=== PATIENT | female | born 1960 | race Caucasian/White ===

== ENCOUNTER 2023-08-31 11:37 | Observation (INO) | payer MEDICAID ==
[2023-08-31] MEDS ORDERED: solu-MEDROL ONE (12:04)
[2023-08-31] MEDS ORDERED: Sterile H2O 10 ml IJ ONE (12:04)
[2023-08-31] MEDS ORDERED: DUONEB 0.5-3 MG/3 ml Neb IH ONE (12:06)
[2023-08-31] MEDS: solu-MEDROL 125 MG, Sterile H2O 10 ml 2 ML IV ONE (12:07)
[2023-08-31] MEDS: DUONEB 0.5-3 MG/3 ml Neb IH ONE (12:08)
[2023-08-31 12:12] LABS: Absolute Neutrophil Ct (ANC) 5.36 x10^3/uL (1.4-6.9); Basophil (Absolute #) 0.08 x10^3/uL (0-0.4); Eosinophil % 3.4 % (0.00-5.0); Eosinophil (Absolute #) 0.26 x10^3/uL (0-0.5); Hemoglobin 15.4 g/dL (12.0-16.0); IMMATURE GRAN # 0.03 x10^3u/L (0.00-0.03); IMMATURE GRAN % 0.4 % (0.00-0.4); Lymphocytes % 19.7 % (24.0-44.0); Mean Cell Volume 94.6 fL (78-100); Mean Corpuscular Hemoglobin 29.7 pg (26-32); Mean Corpuscular Hgb Concent. 31.4 g/dL (32-36); Mean Platelet Volume 10.9 fL (7.5-11.0); Monocyte (Absolute #) 0.39 x10^3/uL (0.0-1.3); Monocytes % 5.1 % (0.0-12.0); Neutrophil % 70.4 % (36.0-66.0); Platelet Count 271 x10^3/uL (150-450); Red Blood Count 5.18 x10^6/uL (4.1-5.4); Red Cell Distribution Width 13.4 % (11.5-14.0); White Blood Count 7.6 x10^3/uL (4.0-10.5)
[2023-08-31 12:19] LABS: VBG BASE EXCESS 1.9 (-2.0-2.0); VBG CARBOXYHEMOGLOBIN 3.8 % T HGB (0.0-6.9); VBG HCO3- 28.7 meq/L (22-28); VBG HEMOGLOBIN 15.8; VBG pH 7.35 (7.32-7.42)
[2023-08-31 12:20] LABS: ALBUMIN 3.7 g/dL (3.5-5.0); ANION GAP 9.9 MEQ/L (5-15); BILIRUBIN,TOTAL 0.4 mg/dL (0.2-1.3); Calcium 8.7 mg/dL (8.4-10.2); Creatinine 1 0.72 mg/dL (0.52-1.04); EST GLOMERULAR FILTRATION RATE 95.1 ML/MIN; MAGNESIUM 1.8 mg/dL (1.6-2.3); Total Protein 6.5 g/dL (6.3-8.2)
--- NOTE | 2023-08-31 12:29 | XRAY ---
Indication: Short of breath and cough. Comparison: None Portable chest hyperinflated and clear with a few incidental tiny calcified granulomas. No focal infiltrate, consolidation, or large effusion. Heart and mediastinal structures within normal limits. Bony thorax intact with mild degenerative changes and incompletely visualized cervical thoracic junction fusion hardware. Impression: Nonacute hyperinflated chest with chronic features.
[2023-08-31 12:41] LABS: NT PRO BNPII 73.2 pg/mL (<300); TROPONIN < 0.012 ng/mL (0.000-0.033)
--- NOTE | 2023-08-31 12:41 | ERPHSYRPT ---
- History of Present Illness Time Seen by Provider: 08/31/23 12:00 Source: patient Exam Limitations: no limitations Patient Subjective Stated Complaint: shortness of breath Triage Nursing Assessment: Pt brought self to the ER, hypertensive, denies pain, pulses normal, skin n/w/d, pt was having a hard time getting a breath and so she was placed on 2L NC, appears to be resting more comfortable now and oxygen sat is 97%, hx of COPD, does not see a doctor, cough with thick yellowish mucus, lung sounds diminished with wheezing, pt does not have a nebulizer or inhalers Physician History: 63-year-old female presents to emergency department for evaluation of progressive shortness of breath and a cough productive of yellow sputum.. Patient has a history of COPD and is a current smoker. Patient states he developed shortness of breath over the past 2 to 3 days. Upon arrival patient was hypoxic at 92% on room air. 2 L nasal cannula applied. Patient O2 sat on 2 L nasal cannula now 97%. Patient normally does not require supplemental oxygen. Patient states she does not have a home nebulizer or rescue inhaler. No chest pain. Patient otherwise feels well. She voices no other complaints or concerns at this time. Portions of this note were created with voice recognition technology. There may be grammatical, spelling, punctuation or sound alike errors Timing/Duration: today Activities at Onset: none Severity of Dyspnea-Max: moderate Severity of Dyspnea-Current: moderate Possible Cause: occasional episodes Modifying Factors: Improves With: activity Associated Symptoms: cough Allergies/Adverse Reactions: No Known Drug Allergies Allergy (Verified 08/31/23 11:56) Home Medications: No Reportable Medications [No Reported Medications] 08/31/23 [History] Hx Influenza Vaccination/Date Given: No Hx Pneumococcal Vaccination/Date Given: No Travel Risk - International Travel Have you traveled outside of the country in past 3 weeks: No - Emerging Infectious Disease Are you exhibiting symptoms associated with any current EIDs: No - Review of Systems Constitutional: No Symptoms, No Fever, No Chills Eyes: No Symptoms Ears, Nose, & Throat: No Symptoms Respiratory: Cough, Dyspnea, Wheezing Cardiac: No Symptoms, No Chest Pain, No Edema, No Syncope Abdominal/Gastrointestinal: No Symptoms, No Abdominal Pain, No Nausea, No Vomiting, No Diarrhea Genitourinary Symptoms: No Symptoms, No Dysuria Musculoskeletal: No Symptoms, No Back Pain, No Neck Pain Skin: No Symptoms, No Rash Neurological: No Symptoms, No Dizziness, No Focal Weakness, No Sensory Changes Psychological: No Symptoms Endocrine: No Symptoms Hematologic/Lymphatic: No Symptoms Immunological/Allergic: No Symptoms All Other Systems: Reviewed and Negative - Past Medical History Pertinent Past Medical History: Yes Respiratory History: COPD - Past Surgical History Past Surgical History: Yes Female Surgical History: Tubal Ligation Other Surgical History: ear surgery - Social History Smoking Status: Current every day smoker Exposure to second hand smoke: Yes Drug Use: marijuana - Nursing Vital Signs Nursing Vital Signs: Initial Vital Signs Temperature 97.5 F 08/31/23 11:45 Pulse Rate 85 08/31/23 11:45 Respiratory Rate 13 08/31/23 11:45 Blood Pressure 149/95 08/31/23 11:45 O2 Sat by Pulse Oximetry 93 L 08/31/23 11:45 Pain Scale Pain Intensity 0 - Physical Exam General Appearance: no apparent distress, alert Eye Exam: PERRL/EOMI Ears, Nose, Throat Exam: hearing grossly normal, normal ENT inspection, normal pharynx Neck Exam: normal inspection, supple Respiratory Exam: diminished breath sounds, rhonchi, wheezing Cardiovascular/Chest Exam: normal heart sounds, regular rate/rhythm Abdominal/Gastrointestinal Exam: soft, No tenderness, No distention, No mass Extremity Exam: non-tender, normal range of motion, normal inspection, no calf tenderness, no pedal edema Neurologic Exam: alert, oriented x 3, cooperative, manager resource II-XII nml as tested, sensation nml, No motor deficits Skin Exam: normal color, warm, No dry Lymphatic Exam: No adenopathy SpO2 Interpretation: normal SpO2: 98 O2 Delivery: Room Air - Course Nursing assessment & vital signs reviewed: Yes EKG Interpreted by Me: RATE (82), Sinus Rhythm, NORMAL AXIS, NORMAL INTERVALS - Radiology Exams Chest X-ray Interpretation: Teleradiologist Report (Hyperinflated nonacute chest with chronic features, lung granuloma) Ordered Tests: Active Orders 24 hr Category Date Time Status Preservative Filler Machine Operator STAT Care 08/31/23 11:59 Active EKG-ER Only STAT Care 08/31/23 11:58 Active IV Insertion STAT Care 08/31/23 11:58 Active Oxygen-ED Only Nasal Cannula 2 lpm Care 08/31/23 11:58 Active Pulse Oximetry (ED) STAT Care 08/31/23 11:58 Active CHEST 1 VIEW (PORTABLE) Stat Exams 08/31/23 11:59 Completed BLOOD CULTURE Stat Lab 08/31/23 12:20 Received CBC W DIFF Stat Lab 08/31/23 12:10 Completed CMP Stat Lab 08/31/23 12:10 Completed D-DIMER QUANTITATIVE Stat Lab 08/31/23 12:10 Completed Lactic Acid Stat Lab 08/31/23 11:58 Completed MAGNESIUM Stat Lab 08/31/23 12:10 Completed NT PRO BNPII Stat Lab 08/31/23 12:10 Completed TROPONIN Q4H Lab 08/31/23 12:10 Completed TROPONIN Q4H Lab 08/31/23 16:00 Ordered TROPONIN Q4H Lab 08/31/23 20:00 Ordered VENOUS BLOOD GAS Stat Lab 08/31/23 11:59 Completed Respiratory Therapy Assessment DAILY RT 08/31/23 12:10 Active Transfer Order Routine Transfer 08/31/23 Ordered Medication Summary Generic Name Dose Route Start Last Admin Trade Name Freq PRN Reason Stop Dose Admin Ceftriaxone Sodium 2 gm in 100 mls @ 200 mls/hr 08/31/23 12:41 08/31/23 12:46 Rocephin 2 Gm/100 Ml Nacl IV 08/31/23 13:10 200 ml/hr STAT ONE 200 mls/hr Administration Azithromycin 500 mg in 250 mls @ 250 mls/hr 08/31/23 12:41 08/31/23 12:50 Zithromax 500 Mg/ 250 Ml Nacl Premix IV 08/31/23 13:40 250 ml/hr STAT STA 250 mls/hr Administration Discontinued Medications Generic Name Dose Route Start Last Admin Trade Name Freq PRN Reason Stop Dose Admin Albuterol/Ipratropium 3 ml 08/31/23 11:58 08/31/23 12:08 Ipratropium/Albuterol Sulfate 3 Ml Ampul.Neb IH 08/31/23 11:59 3 ml STAT ONE Administration Albuterol/Ipratropium Confirm 08/31/23 12:06 Ipratropium/Albuterol Sulfate 3 Ml Ampul.Neb Administered 08/31/23 12:07 Dose 3 ml IH .STK-MED ONE Methylprednisolone Sodium 0 mg 08/31/23 11:58 08/31/23 12:07 Succinate 125 mg/ Sterile IV 08/31/23 11:59 125 mg Water 2 ml STAT ONE Administration Azithromycin Confirm 08/31/23 12:43 Zithromax 500 Mg/ 250 Ml Nacl Premix Administered 08/31/23 12:44 Dose 500 mg in 250 mls @ ud IV .STK-MED ONE Ceftriaxone Sodium Confirm 08/31/23 12:43 Rocephin 2 Gm/100 Ml Nacl Administered 08/31/23 12:44 Dose 2 gm in 100 mls @ ud IV .STK-MED ONE Methylprednisolone Sodium Succinate Confirm 08/31/23 12:04 Methylprednis Sod Succ 125 Mg/2 Ml Vial Administered 08/31/23 12:05 Dose 125 mg .ROUTE .STK-MED ONE Sterile Water Confirm 08/31/23 12:04 Water For Injection,Sterile 10 Ml Vial Administered 08/31/23 12:05 Dose 10 ml IJ .STK-MED ONE Lab/Rad Data: Laboratory Result Diagrams 08/31/23 12:10 08/31/23 12:10 Laboratory Results 08/31/23 08/31/23 08/31/23 Range/Units 12:10 12:10 12:10 WBC (4.0-10.5) x10^3/uL RBC (4.1-5.4) x10^6/uL Hgb (12.0-16.0) g/dL Hct (35-47) % MCV (78-100) fL MCH (26-32) pg MCHC (32-36) g/dL RDW (11.5-14.0) % Plt Count (150-450) x10^3/uL MPV (7.5-11.0) fL Gran % (36.0-66.0) % Immature Gran % (Auto) (0.00-0.4) % Nucleat RBC Rel Count (0.00-0.1) % Eos # (Auto) (0-0.5) x10^3/uL Immature Gran # (Auto) (0.00-0.03) x10^3u/L Absolute Lymphs (auto) (1.0-4.6) x10^3/uL Absolute Monos (auto) (0.0-1.3) x10^3/uL Absolute Nucleated RBC (0.00-0.01) x10^3u/L Lymphocytes % (24.0-44.0) % Monocytes % (0.0-12.0) % Eosinophils % (0.00-5.0) % Basophils % (0.0-0.4) % Absolute Granulocytes (1.4-6.9) x10^3/uL Basophils # (0-0.4) x10^3/uL D-Dimer 0.37 (0.0-0.50) mg/L pO2/FiO2 Ratio % VBG pH (7.32-7.42) VBG pCO2 at Pat Temp (42-55) mm/Hg VBG pO2 at Pat Temp (25-40) mm/Hg VBG HCO3 (22-28) meq/L VBG O2 Sat (Brook) (95-100) VBG Base Excess (-2.0-2.0) VBG Hemoglobin VBG Carboxyhemoglobin (0.0-6.9) % T HGB POC Potassium (3.5-5.1) Sodium 142 (135-145) mmol/L Potassium 4.0 (3.5-5.1) mmol/L Chloride 108 H (98-107) mmol/L Carbon Dioxide 28 (22-30) mmol/L Anion Gap 9.9 (5-15) MEQ/L BUN 16 (7-17) mg/dL Creatinine 0.72 (0.52-1.04) mg/dL Estimated GFR 95.1 ML/MIN Glucose 115 H (74-106) mg/dL Lactic Acid (0.4-2.0) Calcium 8.7 (8.4-10.2) mg/dL Magnesium 1.8 (1.6-2.3) mg/dL Total Bilirubin 0.40 (0.2-1.3) mg/dL AST 20 (14-36) U/L ALT 18 (0-35) U/L Alkaline Phosphatase 80 (38-126) U/L Troponin I < 0.012 (0.000-0.033) ng/mL NT-Pro-B Natriuret Pep 73.2 (<300) pg/mL Serum Total Protein 6.5 (6.3-8.2) g/dL Albumin 3.7 (3.5-5.0) g/dL 04/30/24 04/30/24 04/30/24 Range/Units 12:10 11:59 11:58 WBC 7.6 (4.0-10.5) x10^3/uL RBC 5.18 (4.1-5.4) x10^6/uL Hgb 15.4 (12.0-16.0) g/dL Hct 49.0 H (35-47) % MCV 94.6 (78-100) fL MCH 29.7 (26-32) pg MCHC 31.4 L (32-36) g/dL RDW 13.4 (11.5-14.0) % Plt Count 271 (150-450) x10^3/uL MPV 10.9 (7.5-11.0) fL Gran % 70.4 H (36.0-66.0) % Immature Gran % (Auto) 0.4 (0.00-0.4) % Nucleat RBC Rel Count 0.0 (0.00-0.1) % Eos # (Auto) 0.26 (0-0.5) x10^3/uL Immature Gran # (Auto) 0.03 (0.00-0.03) x10^3u/L Absolute Lymphs (auto) 1.50 (1.0-4.6) x10^3/uL Absolute Monos (auto) 0.39 (0.0-1.3) x10^3/uL Absolute Nucleated RBC 0.00 (0.00-0.01) x10^3u/L Lymphocytes % 19.7 L (24.0-44.0) % Monocytes % 5.1 (0.0-12.0) % Eosinophils % 3.4 (0.00-5.0) % Basophils % 1.0 (0.0-0.4) % Absolute Granulocytes 5.36 (1.4-6.9) x10^3/uL Basophils # 0.08 (0-0.4) x10^3/uL D-Dimer (0.0-0.50) mg/L pO2/FiO2 Ratio 21.0 % VBG pH 7.35 (7.32-7.42) VBG pCO2 at Pat Temp 52 (42-55) mm/Hg VBG pO2 at Pat Temp 112 H (25-40) mm/Hg VBG HCO3 28.7 H (22-28) meq/L VBG O2 Sat (Brook) 98.0 (95-100) VBG Base Excess 1.9 (-2.0-2.0) VBG Hemoglobin 15.8 VBG Carboxyhemoglobin 3.8 (0.0-6.9) % T HGB POC Potassium 4.0 (3.5-5.1) Sodium (135-145) mmol/L Potassium (3.5-5.1) mmol/L Chloride (98-107) mmol/L Carbon Dioxide (22-30) mmol/L Anion Gap (5-15) MEQ/L BUN (7-17) mg/dL Creatinine (0.52-1.04) mg/dL Estimated GFR ML/MIN Glucose (74-106) mg/dL Lactic Acid 1.5 (0.4-2.0) Calcium (8.4-10.2) mg/dL Magnesium (1.6-2.3) mg/dL Total Bilirubin (0.2-1.3) mg/dL AST (14-36) U/L ALT (0-35) U/L Alkaline Phosphatase (38-126) U/L Troponin I (0.000-0.033) ng/mL NT-Pro-B Natriuret Pep (<300) pg/mL Serum Total Protein (6.3-8.2) g/dL Albumin (3.5-5.0) g/dL - Progress Progress: improved Air Movement: good Progress Note: 63-year-old female presents to our ED for evaluation of shortness of breath. Upon arrival patient was hypoxic 92% on room air. Patient normally does not require supplemental oxygen. 2 L nasal cannula placed. O2 sat 97%. Physical exam reveals diminished coarse breath sounds with scattered wheezing. Patient received DuoNeb and Solu-Medrol. Symptoms improved. Wheezing resolved. Patient still requires supplemental oxygen. Patient is a smoker. Smoking cessa tion discussed. Patient will require hospitalization for further evaluation and treatment. Case discussed with Dr.Colan Higgins who accepts admission at 1:05 PM. Plan of care discussed with patient. She agrees to admission at [facility] for further evaluation and treatment. No significant lab derangements observed. D-dimer negative. Initial troponin negative as well. Portions of this note were created with voice recognition technology. There may be grammatical, spelling, punctuation or sound alike errors Complexity problem addressed is moderate acute complicated No critical care time Complexity of data reviewed and analyzed is extensive. Test ordered test reviewed results analyzed and correlated clinically with history and physical exam. Risk of complication and or risk of morbidity/mortality of patient management is high. Patient requires hospitalization for further evaluation and treatment. Vital stable. Time spent admit patient approximately 20 minutes. Plan of care established for shared decision making. No social determinants of health present impede follow-up Portions of this note were created with voice recognition technology. There may be grammatical, spelling, punctuation or sound alike errors 08/31/23 13:08 Blood Culture(s) Obtained: Yes Antibiotics given: Yes Counseled pt/family regarding: lab results, diagnosis, rad results - Departure Departure Disposition: Observation Clinical Impression: COPD exacerbation, Hypoxia, Lung granuloma Condition: Stable Critical Care Time: No Referrals: [facility] [LOCATION] - Follow up/PCP as directed Instructions: Chronic Obstructive Pulmonary Disease
[2023-08-31] MEDS ORDERED: ROCEPHIN 2 GM/100 ML NACL 2 GM/100 ML IVPB IV ONE (12:43)
[2023-08-31] MEDS ORDERED: Zithromax 500 MG/ 250 ML NaCl Premix 500 MG/250 ML IVPB IV ONE (12:43)
[2023-08-31] MEDS: ROCEPHIN 2 GM/100 ML NACL 2 GM/100 ML IVPB IV ONE (12:46)
[2023-08-31] MEDS: Zithromax 500 MG/ 250 ML NaCl Premix 500 MG/250 ML IVPB IV STA (12:50)
[2023-08-31 13:02] LABS: INFLUENZA A NEGATIVE (NEGATIVE); INFLUENZA B NEGATIVE (NEGATIVE); RESPIRATORY SYNCTIAL VIRUS NEGATIVE (NEGATIVE); SARS-CoV-2 Xpert Express NEGATIVE (NEGATIVE)
[2023-08-31] MEDS: DUONEB 0.5-3 MG/3 ml Neb IH SCH (13:46)
--- NOTE | 2023-08-31 14:32 | PCM.HP ---
History of Present Illness - Chief Complaint Chief Complaint: COPD exacerbation Date: 08/31/23 History of Present Illness: is a 63 year old female with a pmhx of COPD,current everyday smoker (1 pack every 2-3 days for the past 40 years) and h/o spontaneous pneumothorax who presented to [facility] ED 08/31/23 experiencing a week history of progressive shortness of breath and productive cough with yellow sputum. Patient states she has not been able to perform her ADL or ambulate without becoming severely short of breath. 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 Denies fever,cp, abdominal pain, WHITE, dizziness, N/V/D. No recent sick contacts. In ED vitals stable. CXR non-acute hyperinflated chest with chronic features. EKG NS. Labs unremarkable. Respiratory panel negative for flu A/B, Covid, and RSV. Patient given solumedrol, ceftriaxone, azithromycin, and duonebs in ED. - Review of Systems Constitutional: No Symptoms Eyes: No Symptoms Ears, Nose, & Throat: No Symptoms Respiratory: Cough, Short Of Breath Cardiac: No Symptoms Abdominal/Gastrointestinal: No Symptoms Genitourinary Symptoms: No Symptoms Musculoskeletal: No Symptoms Skin: No Symptoms Neurological: No Symptoms Psychological: No Symptoms Endocrine: No Symptoms Hematologic/Lymphatic: No Symptoms Immunological/Allergic: No Symptoms Medications & Allergies Home Medications: Home Medication List No Reportable Medications [No Reported Medications] 08/31/23 [History Confirmed 08/31/23] Allergies/Adverse Reactions: Allergies Allergy/AdvReac Type Severity Reaction Status Date / Time No Known Drug Allergies Allergy Verified 08/31/23 14:04 - Past Medical History Past Medical History: Yes Respiratory History: COPD - Past Surgical History Past Surgical History: Yes Female Surgical History: Tubal Ligation Other Surgical History: ear surgery - Social History Smoking Status: Current every day smoker Exposure to second hand smoke: Yes Alcohol: None Drug Use: marijuana - Social Determinants of Health Will the patient participate in the screening: Yes Do you worry about a steady place to live?: No Do you have any problems with any of the following?: No known problems In the past 12 months,have you had to go without utilities?: No Have you or anyone in your house had to go without enough: No Transportation Issues: No Has anyone in your support network made you feel unsafe?: No - Physical Exam Vital Signs: Vital Signs - 24 hr Temp Pulse Resp BP Pulse Ox 08/31/23 13:47 81 20 95 08/31/23 13:11 98 08/31/23 13:00 82 18 149/96 95 08/31/23 12:10 84 28 H 98 08/31/23 12:00 92 L 08/31/23 11:45 97.5 F 85 21 149/95 95 General Appearance: no apparent distress Neurologic Exam: alert, oriented x 3, cooperative Eye Exam: PERRL/EOMI Ears, Nose, Throat Exam: normal ENT inspection Neck Exam: normal inspection Respiratory Exam: diminished breath sounds, crackles/rales, wheezing Cardiovascular Exam: regular rate/rhythm, normal heart sounds Gastrointestinal/Abdomen Exam: soft, normal bowel sounds Pelvic Exam: not done Rectal Exam: deferred Back Exam: normal inspection Results - Labs Lab/Micro Results: Lab Results-Last 24 Hours 08/31/23 08/31/23 08/31/23 Range/Units 11:58 11:59 12:10 WBC 7.6 (4.0-10.5) x10^3/uL RBC 5.18 (4.1-5.4) x10^6/uL Hgb 15.4 (12.0-16.0) g/dL Hct 49.0 H (35-47) % MCV 94.6 (78-100) fL MCH 29.7 (26-32) pg MCHC 31.4 L (32-36) g/dL RDW 13.4 (11.5-14.0) % Plt Count 271 (150-450) x10^3/uL MPV 10.9 (7.5-11.0) fL Gran % 70.4 H (36.0-66.0) % Immature Gran % (Auto) 0.4 (0.00-0.4) % Nucleat RBC Rel Count 0.0 (0.00-0.1) % Eos # (Auto) 0.26 (0-0.5) x10^3/uL Immature Gran # (Auto) 0.03 (0.00-0.03) x10^3u/L Absolute Lymphs (auto) 1.50 (1.0-4.6) x10^3/uL Absolute Monos (auto) 0.39 (0.0-1.3) x10^3/uL Absolute Nucleated RBC 0.00 (0.00-0.01) x10^3u/L Lymphocytes % 19.7 L (24.0-44.0) % Monocytes % 5.1 (0.0-12.0) % Eosinophils % 3.4 (0.00-5.0) % Basophils % 1.0 (0.0-0.4) % Absolute Granulocytes 5.36 (1.4-6.9) x10^3/uL Basophils # 0.08 (0-0.4) x10^3/uL D-Dimer (0.0-0.50) mg/L pO2/FiO2 Ratio 21.0 % VBG pH 7.35 (7.32-7.42) VBG pCO2 at Pat Temp 52 (42-55) mm/Hg VBG pO2 at Pat Temp 112 H (25-40) mm/Hg VBG HCO3 28.7 H (22-28) meq/L VBG O2 Sat (Brook) 98.0 (95-100) VBG Base Excess 1.9 (-2.0-2.0) VBG Hemoglobin 15.8 VBG Carboxyhemoglobin 3.8 (0.0-6.9) % T HGB POC Potassium 4.0 (3.5-5.1) Sodium (135-145) mmol/L Potassium (3.5-5.1) mmol/L Chloride (98-107) mmol/L Carbon Dioxide (22-30) mmol/L Anion Gap (5-15) MEQ/L BUN (7-17) mg/dL Creatinine (0.52-1.04) mg/dL Estimated GFR ML/MIN Glucose (74-106) mg/dL Lactic Acid 1.5 (0.4-2.0) Calcium (8.4-10.2) mg/dL Magnesium (1.6-2.3) mg/dL Total Bilirubin (0.2-1.3) mg/dL AST (14-36) U/L ALT (0-35) U/L Alkaline Phosphatase (38-126) U/L Troponin I (0.000-0.033) ng/mL NT-Pro-B Natriuret Pep (<300) pg/mL Serum Total Protein (6.3-8.2) g/dL Albumin (3.5-5.0) g/dL Influenza Type A Ag (NEGATIVE) Influenza Type B Ag (NEGATIVE) RSV (PCR) (NEGATIVE) SARS-CoV-2 (PCR) (NEGATIVE) 08/31/23 08/31/23 08/31/23 Range/Units 12:10 12:10 12:10 WBC (4.0-10.5) x10^3/uL RBC (4.1-5.4) x10^6/uL Hgb (12.0-16.0) g/dL Hct (35-47) % MCV (78-100) fL MCH (26-32) pg MCHC (32-36) g/dL RDW (11.5-14.0) % Plt Count (150-450) x10^3/uL MPV (7.5-11.0) fL Gran % (36.0-66.0) % Immature Gran % (Auto) (0.00-0.4) % Nucleat RBC Rel Count (0.00-0.1) % Eos # (Auto) (0-0.5) x10^3/uL Immature Gran # (Auto) (0.00-0.03) x10^3u/L Absolute Lymphs (auto) (1.0-4.6) x10^3/uL Absolute Monos (auto) (0.0-1.3) x10^3/uL Absolute Nucleated RBC (0.00-0.01) x10^3u/L Lymphocytes % (24.0-44.0) % Monocytes % (0.0-12.0) % Eosinophils % (0.00-5.0) % Basophils % (0.0-0.4) % Absolute Granulocytes (1.4-6.9) x10^3/uL Basophils # (0-0.4) x10^3/uL D-Dimer 0.37 (0.0-0.50) mg/L pO2/FiO2 Ratio % VBG pH (7.32-7.42) VBG pCO2 at Pat Temp (42-55) mm/Hg VBG pO2 at Pat Temp (25-40) mm/Hg VBG HCO3 (22-28) meq/L VBG O2 Sat (Brook) (95-100) VBG Base Excess (-2.0-2.0) VBG Hemoglobin VBG Carboxyhemoglobin (0.0-6.9) % T HGB POC Potassium (3.5-5.1) Sodium 142 (135-145) mmol/L Potassium 4.0 (3.5-5.1) mmol/L Chloride 108 H (98-107) mmol/L Carbon Dioxide 28 (22-30) mmol/L Anion Gap 9.9 (5-15) MEQ/L BUN 16 (7-17) mg/dL Creatinine 0.72 (0.52-1.04) mg/dL Estimated GFR 95.1 ML/MIN Glucose 115 H (74-106) mg/dL Lactic Acid (0.4-2.0) Calcium 8.7 (8.4-10.2) mg/dL Magnesium 1.8 (1.6-2.3) mg/dL Total Bilirubin 0.40 (0.2-1.3) mg/dL AST 20 (14-36) U/L ALT 18 (0-35) U/L Alkaline Phosphatase 80 (38-126) U/L Troponin I < 0.012 (0.000-0.033) ng/mL NT-Pro-B Natriuret Pep 73.2 (<300) pg/mL Serum Total Protein 6.5 (6.3-8.2) g/dL Albumin 3.7 (3.5-5.0) g/dL Influenza Type A Ag (NEGATIVE) Influenza Type B Ag (NEGATIVE) RSV (PCR) (NEGATIVE) SARS-CoV-2 (PCR) (NEGATIVE) 08/31/23 Range/Units 12:20 WBC (4.0-10.5) x10^3/uL RBC (4.1-5.4) x10^6/uL Hgb (12.0-16.0) g/dL Hct (35-47) % MCV (78-100) fL MCH (26-32) pg MCHC (32-36) g/dL RDW (11.5-14.0) % Plt Count (150-450) x10^3/uL MPV (7.5-11.0) fL Gran % (36.0-66.0) % Immature Gran % (Auto) (0.00-0.4) % Nucleat RBC Rel Count (0.00-0.1) % Eos # (Auto) (0-0.5) x10^3/uL Immature Gran # (Auto) (0.00-0.03) x10^3u/L Absolute Lymphs (auto) (1.0-4.6) x10^3/uL Absolute Monos (auto) (0.0-1.3) x10^3/uL Absolute Nucleated RBC (0.00-0.01) x10^3u/L Lymphocytes % (24.0-44.0) % Monocytes % (0.0-12.0) % Eosinophils % (0.00-5.0) % Basophils % (0.0-0.4) % Absolute Granulocytes (1.4-6.9) x10^3/uL Basophils # (0-0.4) x10^3/uL D-Dimer (0.0-0.50) mg/L pO2/FiO2 Ratio % VBG pH (7.32-7.42) VBG pCO2 at Pat Temp (42-55) mm/Hg VBG pO2 at Pat Temp (25-40) mm/Hg VBG HCO3 (22-28) meq/L VBG O2 Sat (Brook) (95-100) VBG Base Excess (-2.0-2.0) VBG Hemoglobin VBG Carboxyhemoglobin (0.0-6.9) % T HGB POC Potassium (3.5-5.1) Sodium (135-145) mmol/L Potassium (3.5-5.1) mmol/L Chloride (98-107) mmol/L Carbon Dioxide (22-30) mmol/L Anion Gap (5-15) MEQ/L BUN (7-17) mg/dL Creatinine (0.52-1.04) mg/dL Estimated GFR ML/MIN Glucose (74-106) mg/dL Lactic Acid (0.4-2.0) Calcium (8.4-10.2) mg/dL Magnesium (1.6-2.3) mg/dL Total Bilirubin (0.2-1.3) mg/dL AST (14-36) U/L ALT (0-35) U/L Alkaline Phosphatase (38-126) U/L Troponin I (0.000-0.033) ng/mL NT-Pro-B Natriuret Pep (<300) pg/mL Serum Total Protein (6.3-8.2) g/dL Albumin (3.5-5.0) g/dL Influenza Type A Ag NEGATIVE (NEGATIVE) Influenza Type B Ag NEGATIVE (NEGATIVE) RSV (PCR) NEGATIVE (NEGATIVE) SARS-CoV-2 (PCR) NEGATIVE (NEGATIVE) - Radiology Impressions Radiology Exams & Impressions: Radiology Procedures Category Date Time Status CHEST 1 VIEW (PORTABLE) Stat Exams 08/31/23 11:59 Completed - Other Procedures and Tests Respiratory Therapy 08/31/23 12:10 Respiratory Therapy Assessment DAILY 08/31/23 13:49 Oxygen Nasal Cannula 2 lpm Assessment/Plan (1) COPD exacerbation Current Visit: Yes Status: Acute Assessment & Plan: -CXR nonacute hyperinflated chest with chronic features -Supplemental oxygen with goal spo2 > 92%, baseline RA -walk test for home qualification -RT eval -Duonebs/albuterol/advair -resp lang negative -Soulmedrol 40mg Q8H -Continue Azithromycin Code(s): J44.1 - CHRONIC OBSTRUCTIVE PULMONARY DISEASE W (ACUTE) EXACERBATION (2) Acute respiratory failure with hypoxia Current Visit: Yes Status: Acute Assessment & Plan: -Secondary to COPD exacerbation -CXR non-acute hyperinflated chest with chronic features -Supplemental oxygen with goal spo2 >92% -ABG/Bipap PRN Code(s): J96.01 - ACUTE RESPIRATORY FAILURE WITH HYPOXIA (3) Hypertension Current Visit: Yes Status: Acute Assessment & Plan: -no home meds, will continue to monitor Code(s): I10 - ESSENTIAL (PRIMARY) HYPERTENSION (4) Smoker Current Visit: Yes Status: Acute Assessment & Plan: -Advised cessation, has started the process but declines nicotine patch VTE: lovenox PPI: protonix Dispo: 1-2 days Code(s): F17.200 - NICOTINE DEPENDENCE, UNSPECIFIED, UNCOMPLICATED Telemedicine Encounter - Telemedicine Encounter Telemedicine Encounter: The entirety of this encounter was performed via Telemedicine"
[2023-08-31] MEDS ORDERED: Nicoderm CQ 21 MG TOP PRN (15:00)
[2023-08-31] MEDS: Advair Hfa 230/21 Mcg COMMON CANISTER IH SCH (19:20)
[2023-08-31] MEDS: solu-MEDROL 40 MG, Sterile H2O 10 ml 1 ML IV SCH (21:17)
[2023-09-01 05:07] LABS: Absolute Neutrophil Ct (ANC) 12.36 x10^3/uL (1.4-6.9); BASOPHIL % 0.1 % (0.0-0.4); Basophil (Absolute #) 0.02 x10^3/uL (0-0.4); Eosinophil (Absolute #) 0 x10^3/uL (0-0.5); Hematocrit 47.3 % (35-47); Hemoglobin 14.6 g/dL (12.0-16.0); IMMATURE GRAN # 0.08 x10^3u/L (0.00-0.03); IMMATURE GRAN % 0.6 % (0.00-0.4); Lymphocyte (Absolute #) 0.89 x10^3/uL (1.0-4.6); Lymphocytes % 6.6 % (24.0-44.0); Mean Cell Volume 94.6 fL (78-100); Mean Corpuscular Hemoglobin 29.2 pg (26-32); Mean Corpuscular Hgb Concent. 30.9 g/dL (32-36); Mean Platelet Volume 10.7 fL (7.5-11.0); Monocytes % 1.5 % (0.0-12.0); Neutrophil % 91.2 % (36.0-66.0); Platelet Count 273 x10^3/uL (150-450); Red Cell Distribution Width 13.5 % (11.5-14.0); White Blood Count 13.6 x10^3/uL (4.0-10.5)
[2023-09-01 05:22] LABS: ALBUMIN 3.6 g/dL (3.5-5.0); ANION GAP 10.4 MEQ/L (5-15); BILIRUBIN,TOTAL 0.3 mg/dL (0.2-1.3); Calcium 9.2 mg/dL (8.4-10.2); Creatinine 1 0.57 mg/dL (0.52-1.04); EST GLOMERULAR FILTRATION RATE 103.3 ML/MIN; Potassium 4.5 mmol/L (3.5-5.1); Total Protein 6.6 g/dL (6.3-8.2)
--- NOTE | 2023-09-01 05:24 | PCM.NOTE ---
Date and Time: 09/01/23521 Subjective Assessment: is a 63 year old female with a pmhx of COPD,current everyday smoker (1 pack every 2-3 days for the past 40 years) and h/o spontaneous pneumothorax who presented to [facility] ED 08/31/23 experiencing a week history of progressive shortness of breath and productive cough with yellow sputum admitted with COPD exacerbation. CXR with no infilatrates. Current treatment with steroids, antibiotics, and bronchodilators. Objective Data Vital Signs: Vital Signs - 24 hr Temp Pulse Resp BP Pulse Ox 09/01/23 04:00 98.0 F 86 17 131/74 95 09/01/23 00:00 99.0 F 98 H 18 134/95 93 L 08/31/23 20:00 97.9 F 90 15 131/74 99 08/31/23 19:20 92 H 20 91 L 08/31/23 16:00 98.4 F 89 19 129/70 99 08/31/23 14:22 98.0 F 85 22 160/95 92 L 08/31/23 14:00 92 H 22 160/65 92 L 08/31/23 13:47 81 20 95 08/31/23 13:11 98 08/31/23 13:00 82 18 149/96 95 08/31/23 12:10 84 28 H 98 08/31/23 12:00 92 L 08/31/23 11:45 97.5 F 85 21 149/95 95 Pain Assessment - Last Documented Pain Intensity 0 Intake and Output: Intake & Output 08/29/23 08/30/23 08/31/23 09/01/23 11:59 11:59 11:59 11:59 Intake Total 840 Output Total 3 Balance 837 Weight 77.111 kg 77 kg Lab Results: Lab Results-Last 24 Hours 08/31/23 08/31/23 08/31/23 Range/Units 11:58 11:59 12:10 WBC 7.6 (4.0-10.5) x10^3/uL RBC 5.18 (4.1-5.4) x10^6/uL Hgb 15.4 (12.0-16.0) g/dL Hct 49.0 H (35-47) % MCV 94.6 (78-100) fL MCH 29.7 (26-32) pg MCHC 31.4 L (32-36) g/dL RDW 13.4 (11.5-14.0) % Plt Count 271 (150-450) x10^3/uL MPV 10.9 (7.5-11.0) fL Gran % 70.4 H (36.0-66.0) % Immature Gran % (Auto) 0.4 (0.00-0.4) % Nucleat RBC Rel Count 0.0 (0.00-0.1) % Eos # (Auto) 0.26 (0-0.5) x10^3/uL Immature Gran # (Auto) 0.03 (0.00-0.03) x10^3u/L Absolute Lymphs (auto) 1.50 (1.0-4.6) x10^3/uL Absolute Monos (auto) 0.39 (0.0-1.3) x10^3/uL Absolute Nucleated RBC 0.00 (0.00-0.01) x10^3u/L Lymphocytes % 19.7 L (24.0-44.0) % Monocytes % 5.1 (0.0-12.0) % Eosinophils % 3.4 (0.00-5.0) % Basophils % 1.0 (0.0-0.4) % Absolute Granulocytes 5.36 (1.4-6.9) x10^3/uL Basophils # 0.08 (0-0.4) x10^3/uL D-Dimer (0.0-0.50) mg/L pO2/FiO2 Ratio 21.0 % VBG pH 7.35 (7.32-7.42) VBG pCO2 at Pat Temp 52 (42-55) mm/Hg VBG pO2 at Pat Temp 112 H (25-40) mm/Hg VBG HCO3 28.7 H (22-28) meq/L VBG O2 Sat (Brook) 98.0 (95-100) VBG Base Excess 1.9 (-2.0-2.0) VBG Hemoglobin 15.8 VBG Carboxyhemoglobin 3.8 (0.0-6.9) % T HGB POC Potassium 4.0 (3.5-5.1) Sodium (135-145) mmol/L Potassium (3.5-5.1) mmol/L Chloride (98-107) mmol/L Carbon Dioxide (22-30) mmol/L Anion Gap (5-15) MEQ/L BUN (7-17) mg/dL Creatinine (0.52-1.04) mg/dL Estimated GFR ML/MIN Glucose (74-106) mg/dL Lactic Acid 1.5 (0.4-2.0) Calcium (8.4-10.2) mg/dL Magnesium (1.6-2.3) mg/dL Total Bilirubin (0.2-1.3) mg/dL AST (14-36) U/L ALT (0-35) U/L Alkaline Phosphatase (38-126) U/L Troponin I (0.000-0.033) ng/mL NT-Pro-B Natriuret Pep (<300) pg/mL Serum Total Protein (6.3-8.2) g/dL Albumin (3.5-5.0) g/dL Influenza Type A Ag (NEGATIVE) Influenza Type B Ag (NEGATIVE) RSV (PCR) (NEGATIVE) SARS-CoV-2 (PCR) (NEGATIVE) 08/31/23 08/31/23 08/31/23 Range/Units 12:10 12:10 12:10 WBC (4.0-10.5) x10^3/uL RBC (4.1-5.4) x10^6/uL Hgb (12.0-16.0) g/dL Hct (35-47) % MCV (78-100) fL MCH (26-32) pg MCHC (32-36) g/dL RDW (11.5-14.0) % Plt Count (150-450) x10^3/uL MPV (7.5-11.0) fL Gran % (36.0-66.0) % Immature Gran % (Auto) (0.00-0.4) % Nucleat RBC Rel Count (0.00-0.1) % Eos # (Auto) (0-0.5) x10^3/uL Immature Gran # (Auto) (0.00-0.03) x10^3u/L Absolute Lymphs (auto) (1.0-4.6) x10^3/uL Absolute Monos (auto) (0.0-1.3) x10^3/uL Absolute Nucleated RBC (0.00-0.01) x10^3u/L Lymphocytes % (24.0-44.0) % Monocytes % (0.0-12.0) % Eosinophils % (0.00-5.0) % Basophils % (0.0-0.4) % Absolute Granulocytes (1.4-6.9) x10^3/uL Basophils # (0-0.4) x10^3/uL D-Dimer 0.37 (0.0-0.50) mg/L pO2/FiO2 Ratio % VBG pH (7.32-7.42) VBG pCO2 at Pat Temp (42-55) mm/Hg VBG pO2 at Pat Temp (25-40) mm/Hg VBG HCO3 (22-28) meq/L VBG O2 Sat (Brook) (95-100) VBG Base Excess (-2.0-2.0) VBG Hemoglobin VBG Carboxyhemoglobin (0.0-6.9) % T HGB POC Potassium (3.5-5.1) Sodium 142 (135-145) mmol/L Potassium 4.0 (3.5-5.1) mmol/L Chloride 108 H (98-107) mmol/L Carbon Dioxide 28 (22-30) mmol/L Anion Gap 9.9 (5-15) MEQ/L BUN 16 (7-17) mg/dL Creatinine 0.72 (0.52-1.04) mg/dL Estimated GFR 95.1 ML/MIN Glucose 115 H (74-106) mg/dL Lactic Acid (0.4-2.0) Calcium 8.7 (8.4-10.2) mg/dL Magnesium 1.8 (1.6-2.3) mg/dL Total Bilirubin 0.40 (0.2-1.3) mg/dL AST 20 (14-36) U/L ALT 18 (0-35) U/L Alkaline Phosphatase 80 (38-126) U/L Troponin I < 0.012 (0.000-0.033) ng/mL NT-Pro-B Natriuret Pep 73.2 (<300) pg/mL Serum Total Protein 6.5 (6.3-8.2) g/dL Albumin 3.7 (3.5-5.0) g/dL Influenza Type A Ag (NEGATIVE) Influenza Type B Ag (NEGATIVE) RSV (PCR) (NEGATIVE) SARS-CoV-2 (PCR) (NEGATIVE) 08/31/23 08/31/23 08/31/23 Range/Units 12:20 15:55 20:00 WBC (4.0-10.5) x10^3/uL RBC (4.1-5.4) x10^6/uL Hgb (12.0-16.0) g/dL Hct (35-47) % MCV (78-100) fL MCH (26-32) pg MCHC (32-36) g/dL RDW (11.5-14.0) % Plt Count (150-450) x10^3/uL MPV (7.5-11.0) fL Gran % (36.0-66.0) % Immature Gran % (Auto) (0.00-0.4) % Nucleat RBC Rel Count (0.00-0.1) % Eos # (Auto) (0-0.5) x10^3/uL Immature Gran # (Auto) (0.00-0.03) x10^3u/L Absolute Lymphs (auto) (1.0-4.6) x10^3/uL Absolute Monos (auto) (0.0-1.3) x10^3/uL Absolute Nucleated RBC (0.00-0.01) x10^3u/L Lymphocytes % (24.0-44.0) % Monocytes % (0.0-12.0) % Eosinophils % (0.00-5.0) % Basophils % (0.0-0.4) % Absolute Granulocytes (1.4-6.9) x10^3/uL Basophils # (0-0.4) x10^3/uL D-Dimer (0.0-0.50) mg/L pO2/FiO2 Ratio % VBG pH (7.32-7.42) VBG pCO2 at Pat Temp (42-55) mm/Hg VBG pO2 at Pat Temp (25-40) mm/Hg VBG HCO3 (22-28) meq/L VBG O2 Sat (Brook) (95-100) VBG Base Excess (-2.0-2.0) VBG Hemoglobin VBG Carboxyhemoglobin (0.0-6.9) % T HGB POC Potassium (3.5-5.1) Sodium (135-145) mmol/L Potassium (3.5-5.1) mmol/L Chloride (98-107) mmol/L Carbon Dioxide (22-30) mmol/L Anion Gap (5-15) MEQ/L BUN (7-17) mg/dL Creatinine (0.52-1.04) mg/dL Estimated GFR ML/MIN Glucose (74-106) mg/dL Lactic Acid (0.4-2.0) Calcium (8.4-10.2) mg/dL Magnesium (1.6-2.3) mg/dL Total Bilirubin (0.2-1.3) mg/dL AST (14-36) U/L ALT (0-35) U/L Alkaline Phosphatase (38-126) U/L Troponin I < 0.012 < 0.012 (0.000-0.033) ng/mL NT-Pro-B Natriuret Pep (<300) pg/mL Serum Total Protein (6.3-8.2) g/dL Albumin (3.5-5.0) g/dL Influenza Type A Ag NEGATIVE (NEGATIVE) Influenza Type B Ag NEGATIVE (NEGATIVE) RSV (PCR) NEGATIVE (NEGATIVE) SARS-CoV-2 (PCR) NEGATIVE (NEGATIVE) Radiology Exams: Radiology Procedures Category Date Time Status CHEST 1 VIEW (PORTABLE) Stat Exams 08/31/23 11:59 Completed Assessment/Plan (1) COPD exacerbation Current Visit: Yes Status: Acute Assessment & Plan: -CXR nonacute hyperinflated chest with chronic features -Supplemental oxygen with goal spo2 > 92%, baseline RA -walk test for home qualification -RT eval -Duonebs/albuterol/advair -resp lang negative -Soulmedrol 40mg Q8H -Continue Azithromycin Code(s): J44.1 - CHRONIC OBSTRUCTIVE PULMONARY DISEASE W (ACUTE) EXACERBATION (2) Acute respiratory failure with hypoxia Current Visit: Yes Status: Acute Assessment & Plan: -Secondary to COPD exacerbation -CXR non-acute hyperinflated chest with chronic features -Supplemental oxygen with goal spo2 >92% -ABG/Bipap PRN Code(s): J96.01 - ACUTE RESPIRATORY FAILURE WITH HYPOXIA (3) Hypertension Current Visit: Yes Status: Acute Assessment & Plan: -no home meds, will continue to monitor Code(s): I10 - ESSENTIAL (PRIMARY) HYPERTENSION (4) Smoker Current Visit: Yes Status: Acute Assessment & Plan: -Advised cessation, has started the process but declines nicotine patch VTE: lovenox PPI: protonix Dispo: 1-2 days Code(s): F17.200 - NICOTINE DEPENDENCE, UNSPECIFIED, UNCOMPLICATED Code(s): J44.1 - CHRONIC OBSTRUCTIVE PULMONARY DISEASE W (ACUTE) EXACERBATION (2) Acute respiratory failure with hypoxia Current Visit: Yes Status: Acute Code(s): J96.01 - ACUTE RESPIRATORY FAILURE WITH HYPOXIA (3) Hypertension Current Visit: Yes Status: Acute Code(s): I10 - ESSENTIAL (PRIMARY) HYPERTENSION (4) Smoker Current Visit: Yes Status: Acute Code(s): F17.200 - NICOTINE DEPENDENCE, UNSPECIFIED, UNCOMPLICATED
[2023-09-01 06:50] VITALS: O2SAT 96
[2023-09-01] MEDS: Zithromax 500 MG/ 250 ML NaCl Premix 500 MG/250 ML IVPB IV SCH (09:24)
[2023-09-01] MEDS: ENOXAPARIN SODIUM SQ SCH (09:24)
--- NOTE | 2023-09-01 11:04 | PCM.DS ---
Discharge Summary Date of Admission: 08/31/23 13:35 Date of Discharge: 09/01/23 Admitting Physician: SUREKHA DIANA MD Primary Care Provider: NO FAMILY DOCTOR Allergies Allergies No Known Drug Allergies Allergy (Verified 08/31/23 14:04) Hospital Summary - Hospital Course Hospital Course: is a 63 year old female with a pmhx of COPD,current everyday smoker (1 pack every 2-3 days for the past 40 years) and h/o spontaneous pneumothorax who presented to [facility] ED 08/31/23 experiencing a week history of progressive shortness of breath and productive cough with yellow sputum admitted with COPD exacerbation. CXR with no infilatrates. IP treatment with steroids, antibiotics, and bronchodilators. Dyspnea and cough have improved. Patient is requesting d ischarge. She qualifies for home oxygen which has been set up for her. Advised follow up with Pulm/PCP which we will need to set up for her as she does not currently have a provider. Advised Smoking cessation. Will provide resources. Discharge Note New Diagnosis:COPD exac New Medications: Medrol dosepack/zpack/Advair/Duonebs Follow Up: Pulm/PCP Latest Assessment & Plan (1) COPD exacerbation Current Visit: Yes Status: Acute Assessment & Plan: -CXR nonacute hyperinflated chest with chronic features -Supplemental oxygen with goal spo2 > 92%, baseline RA -walk test for home qualification -RT eval -Duonebs/albuterol/advair -resp lang negative -Soulmedrol 40mg Q8H -Continue Azithromycin Code(s): J44.1 - CHRONIC OBSTRUCTIVE PULMONARY DISEASE W (ACUTE) EXACERBATION (2) Acute respiratory failure with hypoxia Current Visit: Yes Status: Acute Assessment & Plan: -Secondary to COPD exacerbation -CXR non-acute hyperinflated chest with chronic features -Supplemental oxygen with goal spo2 >92% -ABG/Bipap PRN Code(s): J96.01 - ACUTE RESPIRATORY FAILURE WITH HYPOXIA (3) Hypertension Current Visit: Yes Status: Acute Assessment & Plan: -no home meds, will continue to monitor Code(s): I10 - ESSENTIAL (PRIMARY) HYPERTENSION (4) Smoker Current Visit: Yes Status: Acute Assessment & Plan: -Advised cessation, has started the process but declines nicotine patch VTE: lovenox PPI: protonix Dispo: 1-2 days Code(s): F17.200 - NICOTINE DEPENDENCE, UNSPECIFIED, UNCOMPLICATED I spent 35 minutes [id number] with the patient on the day of discharge performing discharge exam, discussing hospital stay and discharge instructions with patient and caregivers, preparation of discharge records, prescriptions & referral forms and addressing any questions/concerns the patient had as documen yury above. - Vitals & Intake/Output Vital Signs: Vital Signs Temperature 98.0 F 09/01/23 06:49 Pulse Rate 81 09/01/23 07:14 Respiratory Rate 18 09/01/23 07:14 Blood Pressure 128/83 09/01/23 06:49 O2 Sat by Pulse Oximetry 96 09/01/23 07:14 Intake & Output: Intake & Output 08/29/23 08/30/23 08/31/23 09/01/23 11:59 11:59 11:59 11:59 Intake Total 1420 Output Total 3 Balance 1417 Weight 77.111 kg 77 kg - Lab Result Diagrams: 09/01/23 04:35 09/01/23 04:35 Lab Results-Last 24 Hrs: Lab Results-Last 24 Hours 08/31/23 08/31/23 08/31/23 Range/Units 11:58 11:59 12:10 WBC 7.6 (4.0-10.5) x10^3/uL RBC 5.18 (4.1-5.4) x10^6/uL Hgb 15.4 (12.0-16.0) g/dL Hct 49.0 H (35-47) % MCV 94.6 (78-100) fL MCH 29.7 (26-32) pg MCHC 31.4 L (32-36) g/dL RDW 13.4 (11.5-14.0) % Plt Count 271 (150-450) x10^3/uL MPV 10.9 (7.5-11.0) fL Gran % 70.4 H (36.0-66.0) % Immature Gran % (Auto) 0.4 (0.00-0.4) % Nucleat RBC Rel Count 0.0 (0.00-0.1) % Eos # (Auto) 0.26 (0-0.5) x10^3/uL Immature Gran # (Auto) 0.03 (0.00-0.03) x10^3u/L Absolute Lymphs (auto) 1.50 (1.0-4.6) x10^3/uL Absolute Monos (auto) 0.39 (0.0-1.3) x10^3/uL Absolute Nucleated RBC 0.00 (0.00-0.01) x10^3u/L Lymphocytes % 19.7 L (24.0-44.0) % Monocytes % 5.1 (0.0-12.0) % Eosinophils % 3.4 (0.00-5.0) % Basophils % 1.0 (0.0-0.4) % Absolute Granulocytes 5.36 (1.4-6.9) x10^3/uL Basophils # 0.08 (0-0.4) x10^3/uL D-Dimer (0.0-0.50) mg/L pO2/FiO2 Ratio 21.0 % VBG pH 7.35 (7.32-7.42) VBG pCO2 at Pat Temp 52 (42-55) mm/Hg VBG pO2 at Pat Temp 112 H (25-40) mm/Hg VBG HCO3 28.7 H (22-28) meq/L VBG O2 Sat (Brook) 98.0 (95-100) VBG Base Excess 1.9 (-2.0-2.0) VBG Hemoglobin 15.8 VBG Carboxyhemoglobin 3.8 (0.0-6.9) % T HGB POC Potassium 4.0 (3.5-5.1) Sodium (135-145) mmol/L Potassium (3.5-5.1) mmol/L Chloride (98-107) mmol/L Carbon Dioxide (22-30) mmol/L Anion Gap (5-15) MEQ/L BUN (7-17) mg/dL Creatinine (0.52-1.04) mg/dL Estimated GFR ML/MIN Glucose (74-106) mg/dL Lactic Acid 1.5 (0.4-2.0) Calcium (8.4-10.2) mg/dL Magnesium (1.6-2.3) mg/dL Total Bilirubin (0.2-1.3) mg/dL AST (14-36) U/L ALT (0-35) U/L Alkaline Phosphatase (38-126) U/L Troponin I (0.000-0.033) ng/mL NT-Pro-B Natriuret Pep (<300) pg/mL Serum Total Protein (6.3-8.2) g/dL Albumin (3.5-5.0) g/dL Influenza Type A Ag (NEGATIVE) Influenza Type B Ag (NEGATIVE) RSV (PCR) (NEGATIVE) SARS-CoV-2 (PCR) (NEGATIVE) 08/31/23 08/31/23 08/31/23 Range/Units 12:10 12:10 12:10 WBC (4.0-10.5) x10^3/uL RBC (4.1-5.4) x10^6/uL Hgb (12.0-16.0) g/dL Hct (35-47) % MCV (78-100) fL MCH (26-32) pg MCHC (32-36) g/dL RDW (11.5-14.0) % Plt Count (150-450) x10^3/uL MPV (7.5-11.0) fL Gran % (36.0-66.0) % Immature Gran % (Auto) (0.00-0.4) % Nucleat RBC Rel Count (0.00-0.1) % Eos # (Auto) (0-0.5) x10^3/uL Immature Gran # (Auto) (0.00-0.03) x10^3u/L Absolute Lymphs (auto) (1.0-4.6) x10^3/uL Absolute Monos (auto) (0.0-1.3) x10^3/uL Absolute Nucleated RBC (0.00-0.01) x10^3u/L Lymphocytes % (24.0-44.0) % Monocytes % (0.0-12.0) % Eosinophils % (0.00-5.0) % Basophils % (0.0-0.4) % Absolute Granulocytes (1.4-6.9) x10^3/uL Basophils # (0-0.4) x10^3/uL D-Dimer 0.37 (0.0-0.50) mg/L pO2/FiO2 Ratio % VBG pH (7.32-7.42) VBG pCO2 at Pat Temp (42-55) mm/Hg VBG pO2 at Pat Temp (25-40) mm/Hg VBG HCO3 (22-28) meq/L VBG O2 Sat (Brook) (95-100) VBG Base Excess (-2.0-2.0) VBG Hemoglobin VBG Carboxyhemoglobin (0.0-6.9) % T HGB POC Potassium (3.5-5.1) Sodium 142 (135-145) mmol/L Potassium 4.0 (3.5-5.1) mmol/L Chloride 108 H (98-107) mmol/L Carbon Dioxide 28 (22-30) mmol/L Anion Gap 9.9 (5-15) MEQ/L BUN 16 (7-17) mg/dL Creatinine 0.72 (0.52-1.04) mg/dL Estimated GFR 95.1 ML/MIN Glucose 115 H (74-106) mg/dL Lactic Acid (0.4-2.0) Calcium 8.7 (8.4-10.2) mg/dL Magnesium 1.8 (1.6-2.3) mg/dL Total Bilirubin 0.40 (0.2-1.3) mg/dL AST 20 (14-36) U/L ALT 18 (0-35) U/L Alkaline Phosphatase 80 (38-126) U/L Troponin I < 0.012 (0.000-0.033) ng/mL NT-Pro-B Natriuret Pep 73.2 (<300) pg/mL Serum Total Protein 6.5 (6.3-8.2) g/dL Albumin 3.7 (3.5-5.0) g/dL Influenza Type A Ag (NEGATIVE) Influenza Type B Ag (NEGATIVE) RSV (PCR) (NEGATIVE) SARS-CoV-2 (PCR) (NEGATIVE) 08/31/23 08/31/23 08/31/23 Range/Units 12:20 15:55 20:00 WBC (4.0-10.5) x10^3/uL RBC (4.1-5.4) x10^6/uL Hgb (12.0-16.0) g/dL Hct (35-47) % MCV (78-100) fL MCH (26-32) pg MCHC (32-36) g/dL RDW (11.5-14.0) % Plt Count (150-450) x10^3/uL MPV (7.5-11.0) fL Gran % (36.0-66.0) % Immature Gran % (Auto) (0.00-0.4) % Nucleat RBC Rel Count (0.00-0.1) % Eos # (Auto) (0-0.5) x10^3/uL Immature Gran # (Auto) (0.00-0.03) x10^3u/L Absolute Lymphs (auto) (1.0-4.6) x10^3/uL Absolute Monos (auto) (0.0-1.3) x10^3/uL Absolute Nucleated RBC (0.00-0.01) x10^3u/L Lymphocytes % (24.0-44.0) % Monocytes % (0.0-12.0) % Eosinophils % (0.00-5.0) % Basophils % (0.0-0.4) % Absolute Granulocytes (1.4-6.9) x10^3/uL Basophils # (0-0.4) x10^3/uL D-Dimer (0.0-0.50) mg/L pO2/FiO2 Ratio % VBG pH (7.32-7.42) VBG pCO2 at Pat Temp (42-55) mm/Hg VBG pO2 at Pat Temp (25-40) mm/Hg VBG HCO3 (22-28) meq/L VBG O2 Sat (Brook) (95-100) VBG Base Excess (-2.0-2.0) VBG Hemoglobin VBG Carboxyhemoglobin (0.0-6.9) % T HGB POC Potassium (3.5-5.1) Sodium (135-145) mmol/L Potassium (3.5-5.1) mmol/L Chloride (98-107) mmol/L Carbon Dioxide (22-30) mmol/L Anion Gap (5-15) MEQ/L BUN (7-17) mg/dL Creatinine (0.52-1.04) mg/dL Estimated GFR ML/MIN Glucose (74-106) mg/dL Lactic Acid (0.4-2.0) Calcium (8.4-10.2) mg/dL Magnesium (1.6-2.3) mg/dL Total Bilirubin (0.2-1.3) mg/dL AST (14-36) U/L ALT (0-35) U/L Alkaline Phosphatase (38-126) U/L Troponin I < 0.012 < 0.012 (0.000-0.033) ng/mL NT-Pro-B Natriuret Pep (<300) pg/mL Serum Total Protein (6.3-8.2) g/dL Albumin (3.5-5.0) g/dL Influenza Type A Ag NEGATIVE (NEGATIVE) Influenza Type B Ag NEGATIVE (NEGATIVE) RSV (PCR) NEGATIVE (NEGATIVE) SARS-CoV-2 (PCR) NEGATIVE (NEGATIVE) 09/01/23 09/01/23 Range/Units 04:35 04:35 WBC 13.6 H (4.0-10.5) x10^3/uL RBC 5.00 (4.1-5.4) x10^6/uL Hgb 14.6 (12.0-16.0) g/dL Hct 47.3 H (35-47) % MCV 94.6 (78-100) fL MCH 29.2 (26-32) pg MCHC 30.9 L (32-36) g/dL RDW 13.5 (11.5-14.0) % Plt Count 273 (150-450) x10^3/uL MPV 10.7 (7.5-11.0) fL Gran % 91.2 H (36.0-66.0) % Immature Gran % (Auto) 0.6 H (0.00-0.4) % Nucleat RBC Rel Count 0.0 (0.00-0.1) % Eos # (Auto) 0 (0-0.5) x10^3/uL Immature Gran # (Auto) 0.08 H (0.00-0.03) x10^3u/L Absolute Lymphs (auto) 0.89 L (1.0-4.6) x10^3/uL Absolute Monos (auto) 0.20 (0.0-1.3) x10^3/uL Absolute Nucleated RBC 0.00 (0.00-0.01) x10^3u/L Lymphocytes % 6.6 L (24.0-44.0) % Monocytes % 1.5 (0.0-12.0) % Eosinophils % 0.0 (0.00-5.0) % Basophils % 0.1 (0.0-0.4) % Absolute Granulocytes 12.36 H (1.4-6.9) x10^3/uL Basophils # 0.02 (0-0.4) x10^3/uL D-Dimer (0.0-0.50) mg/L pO2/FiO2 Ratio % VBG pH (7.32-7.42) VBG pCO2 at Pat Temp (42-55) mm/Hg VBG pO2 at Pat Temp (25-40) mm/Hg VBG HCO3 (22-28) meq/L VBG O2 Sat (Brook) (95-100) VBG Base Excess (-2.0-2.0) VBG Hemoglobin VBG Carboxyhemoglobin (0.0-6.9) % T HGB POC Potassium (3.5-5.1) Sodium 141 (135-145) mmol/L Potassium 4.5 (3.5-5.1) mmol/L Chloride 108 H (98-107) mmol/L Carbon Dioxide 27 (22-30) mmol/L Anion Gap 10.4 (5-15) MEQ/L BUN 13 (7-17) mg/dL Creatinine 0.57 (0.52-1.04) mg/dL Estimated GFR 103.3 ML/MIN Glucose 136 H (74-106) mg/dL Lactic Acid (0.4-2.0) Calcium 9.2 (8.4-10.2) mg/dL Magnesium (1.6-2.3) mg/dL Total Bilirubin 0.30 (0.2-1.3) mg/dL AST 20 (14-36) U/L ALT 20 (0-35) U/L Alkaline Phosphatase 73 (38-126) U/L Troponin I (0.000-0.033) ng/mL NT-Pro-B Natriuret Pep (<300) pg/mL Serum Total Protein 6.6 (6.3-8.2) g/dL Albumin 3.6 (3.5-5.0) g/dL Influenza Type A Ag (NEGATIVE) Influenza Type B Ag (NEGATIVE) RSV (PCR) (NEGATIVE) SARS-CoV-2 (PCR) (NEGATIVE) - Radiology Exams Ordered Rad Exams-Entire Visit: Radiology Procedures Category Date Time Status CHEST 1 VIEW (PORTABLE) Stat Exams 08/31/23 11:59 Completed - Procedures and Test Procedures and Tests throughout Hospitalization: Therapy Orders & Screens 08/31/23 12:10 Respiratory Therapy Assessment DAILY Comment: 08/31/23 13:49 Oxygen Nasal Cannula 2 lpm Comment: Diagnosis: COPD exacerbation 08/31/23 14:54 Respiratory MDI BID Comment: Diagnosis: COPD exacerbation Respiratory Therapy Consult ONCE Comment: Reason For Exam: Diagnosis: COPD exacerbation 08/31/23 15:00 Smoking Cessation Education ONCE Comment: Diagnosis: COPD exacerbation Smoking Status: Current every day smoker Approximately how many cigarettes per day: 10 Do you dip or chew tobacco: No Discharge Exam General Appearance: no apparent distress Neurologic Exam: alert, oriented x 3, cooperative Eye Exam: PERRL Ears, Nose, Throat Exam: normal ENT inspection Neck Exam: normal inspection Respiratory Exam: diminished breath sounds Cardiovascular Exam: regular rate/rhythm, normal heart sounds Gastrointestinal/Abdomen Exam: soft, normal bowel sounds Pelvic Exam: deferred Rectal Exam: deferred Back Exam: normal inspection Extremity Exam: normal inspection Skin Exam: normal color Final Diagnosis/Problem List - Final Discharge Diagnosis/Problem (1) COPD exacerbation Current Visit: Yes Status: Acute Code(s): J44.1 - CHRONIC OBSTRUCTIVE PULMONARY DISEASE W (ACUTE) EXACERBATION (2) Acute respiratory failure with hypoxia Current Visit: Yes Status: Acute Code(s): J96.01 - ACUTE RESPIRATORY FAILURE WITH HYPOXIA (3) Hypertension Current Visit: Yes Status: Acute Code(s): I10 - ESSENTIAL (PRIMARY) HYPERTENSION (4) Smoker Current Visit: Yes Status: Acute Code(s): F17.200 - NICOTINE DEPENDENCE, UNSPECIFIED, UNCOMPLICATED - Discharge Disposition: Home, Self-Care Condition: Stable Prescriptions: New Fluticasone/Salmeterol 230/21 [Advair Hfa 230/21 Mcg COMMON CANISTER*] 2 puff IH BID 30 Days #1 inhaler Albuterol/Ipratropium 3ml Neb* [DUONEB 0.5-3 MG/3 ml Neb] 3 ml IH Q6HPRN PRN 30 Days #120 amp PRN Reason: Shortness Of Breath/Wheezing Methylprednisolone Packet [Medrol Dosepack] 4 mg PO UD #30 packet Nicotine 21 mg [Nicoderm CQ 21 MG] 21 mg TOP Q24H PRN 44 Days #44 patch PRN Reason: Anxiety/Agitation Azithromycin 250 mg [Zithromax 250 MG TABLET] 250 mg PO ZPACK #6 tablet Instructions: Oxygen Therapy, Adult (DC), Exacerbation of COPD (DC) Additional Instructions: WEAR 2L/NC AT ALL TIMES CALL STACI MARTIN AT [phone] WHEN YOU LEAVE [facility], [facility] SO THEY CAN MEET YOU AT HOME TO 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
[2023-09-01 11:37] VITALS: BP 136/87; PULSE 95; RESP 16; TEMP 97.5
== END 2023-09-01 12:25 | disposition home or self-care (01) ==
LOC: ED 11:37 → MED SURG 13:35
PROVIDERS: ADMIT Internal Medicine; ATTEND Internal Medicine
DX: J44.1 Chronic obstructive pulmonary disease with (acute) exacerbation (principal); J96.01 Acute respiratory failure with hypoxia; F17.200 Nicotine dependence, unspecified, uncomplicated; I10 Essential (primary) hypertension; R06.02 Shortness of breath; Z79.899 Other long term (current) drug therapy
CPT/HCPCS: 0241U; 36000; 36415; 71045; 80053; 82805; 83605; 83735; 83880; 84484; 85025; 85379; 87040; 93005; 93041; 94640; 94760; 94762; 96365; 96368; 96374; 99285; Q3014; 93268; J0456; J0696; J1650; J2919; A9270-GY; G0378